=== PATIENT | female | born 1960 | race Caucasian/White ===

== ENCOUNTER → 2020-04-25 | Outpatient (CLI) | payer OTHER ==
[~2020-04-25] MED LIST: ALL DAY ALLERGY10 M2 PO; ASPIR 8181 MG PO; BACTRIM DS TAB1 EACH PO; BUSPAR 5MG TABLE5 MG PO; CATAPRES 0.1MG0.1 MG PO; CELEXA40 MG PO; CLEOCIN HCL300 MG PO; COZAAR100 MG PO; CRESTOR40 MG PO; ELAVIL 50 MG TA50 MG PO; FLEXERIL 10 MG10 MG PO; GLUCOPHAGE 500500 MG PO; LASIX40 MG PO; LEVOTHYROXINE150 MCG PO; LIDOCAIN TD; LORTAB 7.5-3251 EACH PO; METOPROLOL SUC100 MG PO; METOPROLOL SUCC50 MG PO; OMEPRAZOLE20 MG PO; POTASSIUM CHLO10 ME2 PO; PROVERA10 MG PO; SINGULAIR10 MG PO; SYMBICORT 160-1 INHA INH; VITAMIN D PO
== END ==
LOC: SLEEP 21:30
DX: G47.30 Sleep apnea, unspecified (principal); G47.33 Obstructive sleep apnea (adult) (pediatric)
CPT/HCPCS: 95810

== ENCOUNTER → 2020-06-08 | Outpatient (CLI) | payer OTHER | LOC: HEART 5 10:38 | DX: R09.02 Hypoxemia (principal) | CPT/HCPCS: 94010 ==

== ENCOUNTER 2020-09-02 15:24 | Emergency (ER) | payer OTHER ==
[~2020-09-02 15:24] MED LIST changes: -CLEOCIN HCL300 MG PO
[2020-09-02] MEDS ORDERED: CLEOCIN HCL300 MG PO (17:31)
== END 2020-09-02 17:55 | disposition home or self-care (01) ==
LOC: ER1 15:24
DX: S90.412A Abrasion, left great toe, initial encounter (principal); E11.40 Type 2 diabetes mellitus with diabetic neuropathy, unspecified; E78.5 Hyperlipidemia, unspecified; I10 Essential (primary) hypertension; J45.909 Unspecified asthma, uncomplicated; Z79.899 Other long term (current) drug therapy; W22.8XXA Striking against or struck by other objects, initial encounter; Y92.89 Other specified places as the place of occurrence of the external cause; Y93.I9 Activity, other involving external motion; Z23 Encounter for immunization; Z88.1 Allergy status to other antibiotic agents; Z88.8 Allergy status to other drugs, medicaments and biological substances
CPT/HCPCS: 90471; 90715; 96372; 99283; J1885

== ENCOUNTER → 2021-07-20 | Outpatient (CLI) | payer OTHER ==
[~2021-07-20] MED LIST changes: +CLEOCIN HCL300 MG PO
== END ==
LOC: EXRD 07-03 11:30
DX: E55.9 Vitamin D deficiency, unspecified (principal); E11.9 Type 2 diabetes mellitus without complications; E66.9 Obesity, unspecified; G47.33 Obstructive sleep apnea (adult) (pediatric); M17.9 Osteoarthritis of knee, unspecified
CPT/HCPCS: 77080